=== PATIENT | male | born 1995 | race Caucasian/White ===

== ENCOUNTER 2021-07-07 14:08 | Emergency (ER) | payer OTHER | END 2021-07-07 15:44 | disposition other institution (70) | LOC: FER 14:08 | DX: S68.121A Partial traumatic metacarpophalangeal amputation of left index finger, initial encounter (principal); S68.123A Partial traumatic metacarpophalangeal amputation of left middle finger, initial encounter; S68.125A Partial traumatic metacarpophalangeal amputation of left ring finger, initial encounter; Z23 Encounter for immunization; W23.0XXA Caught, crushed, jammed, or pinched between moving objects, initial encounter; Y92.89 Other specified places as the place of occurrence of the external cause; Y99.0 Civilian activity done for income or pay; Z28.310 Unvaccinated for COVID-19 | CPT/HCPCS: 73130; 90471; 90715; J1170 ==